=== PATIENT | female | born 2000 ===

== ENCOUNTER 2021-01-20 14:14 | Inpatient (IN) ==
[2021-01-20] MEDS ORDERED: SODIUM BICARBONATE 50 MEQ/50 ML VIAL IV ONE ×2 (16:44→16:48)
[2021-01-20] MEDS ORDERED: INSULIN REGULAR 100 UNIT/ML IV ONE (16:49)
[2021-01-20] MEDS ORDERED: fentaNYL 100 MCG/2 ML VIAL ONE ×2 (16:51→17:44)
[2021-01-20] MEDS ORDERED: ROCURONIUM 50 MG/5 ML VIAL IV ONE (16:51)
[2021-01-20] MEDS ORDERED: LIDOCAINE 2% 5 ML VIAL ONE ×2 (16:51→16:52)
[2021-01-20] MEDS ORDERED: MIDAZOLAM 2 MG/2 ML VIAL ONE (16:51)
[2021-01-20] MEDS ORDERED: SEVOFLURANE 1 UNIT/15 MINUTE INH ONE (16:51)
[2021-01-20] MEDS ORDERED: SUCCINYLCHOLINE 200 MG/10 ML VIAL ONE (16:51)
[2021-01-20] MEDS ORDERED: ONDANSETRON 4 MG/2 ML VIAL ONE ×2 (16:51→18:15)
[2021-01-20] MEDS ORDERED: propofoL 200 MG/20 ML VIAL IV ONE (16:52)
[2021-01-20] MEDS ORDERED: INSULIN REGULAR 100 UNIT/ML ONE (16:54)
[2021-01-20] MEDS ORDERED: cefTRIAXone 1,000 MG VIAL ONE (16:54)
[2021-01-20] MEDS ORDERED: POTASSIUM CHLORIDE 20 MEQ/10 ML VIAL ONE (16:55)
[2021-01-20] MEDS: SODIUM CHLORIDE 0.9% 1,000 ML IV SCH (17:05)
[2021-01-20] MEDS ORDERED: cefTRIAXone 1,000 MG in SODIUM CHLORIDE 0.9% 100 ML IV ONE (17:06)
[2021-01-20] MEDS ORDERED: ACETAMINOPHEN INJ 1,000 MG/100 ML VIAL IV ONE (17:48)
[2021-01-20] MEDS: HYDROmorphone 2 MG/1 ML VIAL IV PRN ×4 (18:10→18:45)
[2021-01-20] MEDS ORDERED: KETOROLAC 30 MG/1 ML VIAL ONE (18:12)
[2021-01-20] MEDS ORDERED: oxyCODONE/ACETAMINOPHEN 5-325 MG TABLET PO PRN (18:14)
[2021-01-20] MEDS ORDERED: ACETAMINOPHEN 325 MG TABLET PO PRN (18:14)
[2021-01-20] MEDS ORDERED: BENZOCAINE/MENTHOL LOZENGE 18/BOX PO PRN (18:14)
[2021-01-20] MEDS ORDERED: ONDANSETRON 4 MG/2 ML VIAL IV PRN ×2 (18:14→18:47)
[2021-01-20] MEDS ORDERED: DOCUSATE SODIUM 100 MG CAPSULE PO PRN (18:14)
[2021-01-20] MEDS ORDERED: MAGNESIUM HYDROXIDE SUSP 30 ML UDCUP PO PRN (18:14)
[2021-01-20] MEDS ORDERED: DEXTROSE 50% 25 GM/50 ML VIAL IV PRN (18:14)
[2021-01-20] MEDS ORDERED: GLUCAGON 1 MG VIAL IM PRN (18:14)
[2021-01-20] MEDS ORDERED: PROMETHAZINE 25 MG/1 ML VIAL IM PRN (18:14)
[2021-01-20] MEDS ORDERED: BISACODYL 10 MG SUPP RECTAL PRN (18:14)
[2021-01-20] MEDS ORDERED: IBUPROFEN 800 MG TABLET PO PRN (18:14)
[2021-01-20] MEDS ORDERED: HYDROmorphone 2 MG/1 ML VIAL ONE (18:15)
[2021-01-20] MEDS ORDERED: MEPERIDINE 25 MG/1 ML VIAL IV PRN ×2 (18:16→18:47)
[2021-01-20 18:36] LABS: Calcium 8.9 MG/DL (8.5-10.1); Osmolality,Calculated 278.8 MOS/KG (273-304); Potassium 4.1 MMOL/L (3.5-5.1)
[2021-01-20] MEDS: FLUCONAZOLE INJ 200 MG/100 ML PREMIX IV SCH (20:34)
[2021-01-20] MEDS: INSULIN LISPRO 100 UNIT/ML SUBCUT SCH (20:35)
[2021-01-20] MEDS: LACTATED RINGERS 1,000 ML IV SCH (20:36)
[2021-01-21] MEDS: LACTATED RINGERS 1,000 ML IV SCH ×3 (04:51→17:48)
[2021-01-21 05:36] LABS: Basophils % 0.2 % (0.0-0.8); Eosinophils % 0.1 % (0.00-10.9); Hematocrit 38.2 VOL% (35.7-47.0); Hemoglobin 12.2 GM/DL (12.0-16.0); Immature Granulocytes Absolute 0.13 #; Lymphocytes # 2.2 10*3/uL (1.4-4.0); Lymphocytes % 16.5 % (21.3-54.2); Mean Corpuscular HGB Conc 31.9 GM/DL (32-36); Mean Corpuscular Volume 87.6 FL (87-102); Mean Platelet Volume 11.6 FL (9.6-12.0); Monocytes % 8.3 % (1.7-12.7); Neutrophils % 73.9 % (38.7-73.9); Platelet Count 186 T/CUMM (130-400); Red Blood Count 4.36 MC/CUMM (3.8-5.5); Red Cell Distribution Width 12.5 % (9.3-17.3); White Blood Count 13.5 T/CUMM (4-12)
[2021-01-21 06:06] LABS: Band Neutrophils 2 % (0-10); Lymphocytes 11 % (20-55); Platelet Estimate Normal; Segmented Neutrophils 83 % (50-85); Total Cells Counted 100
[2021-01-21] MEDS ORDERED: INFLUENZA VIRUS VACCINE 0.5 ML SYRINGE IM ONE (09:00)
[2021-01-21] MEDS: INSULIN LISPRO 100 UNIT/ML SUBCUT SCH ×6 (09:24→20:35)
[2021-01-21] MEDS: SODIUM CHLORIDE 0.9% 1,000 ML IV SCH (12:09)
[2021-01-21] MEDS: FLUCONAZOLE INJ 200 MG/100 ML PREMIX IV SCH (17:48)
[2021-01-21] MEDS ORDERED: cefTRIAXone 1,000 MG in SODIUM CHLORIDE 0.9% 100 ML IV SCH (18:00)
[2021-01-21] MEDS ORDERED: INSULIN GLARGINE 100 UNIT/ML SUBCUT SCH (21:00)
[2021-01-22] MEDS: INSULIN LISPRO 100 UNIT/ML SUBCUT SCH ×4 (09:00→11:41)
[2021-01-22 11:26] VITALS: BP 111/73
[2021-01-22] MEDS ORDERED: INSULIN GLARGINE 100 UNIT/ML SUBCUT SCH (21:00)
[2021-01-22] MEDS ORDERED: SULFAMETHOX/TRIMETHOPRIM 800-160 MG TABLET PO SCH (21:00)
[2021-01-23] MEDS ORDERED: FLUCONAZOLE 100 MG TABLET PO SCH (09:00)
== END 2021-01-22 15:30 | disposition home or self-care (01) | DRG 952 ==
LOC: N.3E 16:12
PROVIDERS: ADMIT Obstetrics & Gynecology; ATTEND Obstetrics & Gynecology